=== PATIENT | female | born 1950 | race Caucasian/White ===

== ENCOUNTER → 2018-05-25 11:34 | Outpatient (CLI) | payer MEDICARE, SELFPAY ==
--- NOTE | 2018-05-25 11:36 | DI.RAD.S_ITS ---
PROCEDURE: XR LUMBAR SPINE MIN 4V INDICATIONS: L2-3 HNP TECHNIQUE: 5 views of the lumbar spine were acquired. COMPARISON: Outside Facility, RG, MRI L-SPINE W/O CONTRAST, 07/07/2017, 14:21. FINDINGS: Bones: 5 [id number] vertebrae are present. There is normal bony alignment. No vertebral body compression fractures. No suspicious bony lesions. There is degenerative disc disease, moderate at L1-L2, L2-L3 and L4-L5, and mild at L5-S1. There is moderate facet arthropathy at L5-S1. Soft tissues: Overlying bowel gas pattern is normal. No suspicious soft tissue calcifications. Oblique images: No pars defects. IMPRESSION: Moderate degenerative disc and facet disease. Dictated by: Armida Bolanos M.D. on 05/25/2018 at 17:06 Approved by: Armida Bolanos M.D. on 05/25/2018 at 17:09
== END ==
PROVIDERS: PCP Physician Assistant; Visit Provider Physical Medicine & Rehabilitation
DX: M51.36 Other intervertebral disc degeneration, lumbar region (principal); M16.12 Unilateral primary osteoarthritis, left hip; M51.37 Other intervertebral disc degeneration, lumbosacral region; M47.817 Spondylosis without myelopathy or radiculopathy, lumbosacral region; M51.26 Other intervertebral disc displacement, lumbar region; M99.83 Other biomechanical lesions of lumbar region
CPT/HCPCS: 72110; 99214

== ENCOUNTER 2018-06-10 12:24 | Outpatient (CLI) | payer MEDICARE, SELFPAY ==
[2018-06-10] VITALS (8 sets, daily range): BP systolic 117–150; BP diastolic 73–102; PULSE 59–72; RESP 16; TEMP 36.2; O2SAT 97–100
--- NOTE | 2018-06-10 12:25 | DI.RAD.S_ITS ---
PROCEDURE: PAIN L/S TRANSFORAMINAL INJECT INDICATIONS: INTERVERTEBRAL DISC DISPLACEMNET FINDINGS: Fluoroscopic spot filming was performed to verify placement of spinal needles at the left L2-3 foramen region, as labeled on the films. Appropriate location(s) of the needle tip(s) was confirmed by injection of iodinated contrast. IMPRESSION: Needle tip localization at the perineural L2-L3 left-sided region for transforaminal epidural steroid injection along the course of the left L2-L3 nerve root. Dictated by: Fidencio Latham M.D. on 06/10/2018 at 14:18 Approved by: Fidencio Latham M.D. on 06/10/2018 at 14:19
[2018-06-10] MEDS: MIDAZOLAM 5 MG/5 ML VIAL IV (13:25)
[2018-06-10] MEDS: IOPAMIDOL 15 ML VIAL 3 ML INJ (13:29)
[2018-06-10] MEDS: DEXAMETHASONE 10 MG/ML VIAL 20 MG INJ (13:30)
[2018-06-10] MEDS: BUPIVACAINE 0.25% (PF) VIAL 2 ML INJ (13:30)
--- NOTE | 2018-06-10 13:37 | PC.NURSE ---
pt tolerated procedure well. Able to get pt off table with minimal assist and into w/c. Transferred pt via wheelchair to pre procedure room for continued monitoring with Leticia DAVIDSON.
--- NOTE | 2018-06-10 13:45 | PM.PROC.1 ---
Procedures Date/Time Date of procedure: 06/10/18 Time of procedure: 13:46 General Procedure description: PROVIDER: Mikey Hsieh DO Operative Note PREOP DIAGNOSIS 1. FORAMINAL STENOSIS WITH LE SYMPTOMS, POST OP DIAGNOSIS 1. FORAMINAL STENOSIS WITH LE SYMPTOMS, PROCEDURES 1. FLUOROSCOPICALLY GUIDED CONTRAST CONTROLLED TRANSFORAMINAL EPIDURAL STEROID INJECTION - LEFT L2/3 TFESI SURGEON: Mikey Hsieh DO INDICATIONS Deyanira is referred by BELINDA Borrego for treatment of Foraminal Stenosis with left LE Symptoms FINDINGS Foraminal Nerve Root Compression secondary to disc disease and facet hypertrophy DESCRIPTION OF PROCEDURE Following denial of allergy and review of potential side effects and complications, including, but not necessarily limited to, infection, allergic reaction, local tissue breakdown, stroke, temporary or permanent nerve injury, paralysis, and possible , the patient indicated that the patient understood and agreed to proceed. An informed consent document was signed by the patient, witnessed by a nurse, and placed in the patient's chart. Additionally, other treatment options including medications, modalities, and physical therapy were reviewed with the patient. After review of previous anaesthesic history and IV conscious sedation the patient was deemed safe to proceed with todays procedure with IV conscious sedation as ASA class II designation. Safety time-out was performed to confirm patient ID, procedure to be performed and site of procedure. IV sedation was accomplished with a combination of 1mg of Versed was administered by the RN after DO order, titrated to patient comfort during the course of the procedure while the patient remained responsive to all verbal commands In the prone position following sterile prep and drape of the lumbar region, the left L2/3 posterior neuroforamen was identified fluoroscopically. The skin was anesthetized via a 25-gauge 1.5-inch needle with 1% lidocaine solution. At this point, a 25-gauge 3.5-inch spinal needle was atraumatically introduced and advanced under fluoroscopic guidance through the posterior left L2/3 neuroforamen to approximately the anterior aspect of the canal. Depth was confirmed on lateral view. Following negative aspiration, injection of approximately 1.5 cc of Isovue 200 under live fluoroscopy in the AP view confirmed excellent flow along the nerve root, into the epidural space without vascular or intrathecal uptake observed Radiological data, including multiple fluoroscopic views of the lumbosacral spine, reveal a spinal needle at the left L2/3 posterior neuroforamen. Subsequent views show flow of contrast material flowing superiorly and inferiorly along the nerve root confirming epidural flow. Subsequently, a test dose of 1.5 cc of 1% lidocaine solution was administered and patient was observed for two minutes for signs or symptoms of complications, including abdominal pain, shortness of breath, bilateral upper or lower extremity weakness, nausea and vomiting, prior to steroid injection. At this point, a total of 2cc or 20mg of dexamethasone was injected without incident. The patient tolerated the procedure well without signs or symptoms of complications prior to transfer to the recovery area continued monitoring without incident. The patient was then transferred to the recovery area where they were observed for an appropriate time after the injection. The patient reported a VAS score of 7 prior to the procedure and a post-procedure VAS of 0. Total Fluoroscopy Time: 24.2 seconds Total Conscious Sedation Time: 24min POST OP INSTRUCTIONS The patient was provided a Pain Log to continue to record their response to the target-specific procedure prior to follow-up visit with their referring physician. Additionally, specific post-injection care instructions and a contact number to our office were provided if concerns arise regarding possible complications associated with the procedure are suspected. Mikey Hsieh DO Complications: none
== END 2018-06-10 14:18 | disposition home or self-care (01) ==
LOC: RAD 12:25
PROVIDERS: PCP Physician Assistant; Visit Provider Physical Medicine & Rehabilitation
DX: M48.061 Spinal stenosis, lumbar region without neurogenic claudication (principal); M51.26 Other intervertebral disc displacement, lumbar region; M16.12 Unilateral primary osteoarthritis, left hip
CPT/HCPCS: 64483; 99152; J1100; J2250; J3010